=== PATIENT | male | born 1965 | race Caucasian/White ===

== ENCOUNTER 2024-07-13 13:58 | Inpatient (IN) | payer MEDICARE, OTHER ==
[~2024-07-13] VITALS: Ht 180.3 cm; Wt 112.2 kg
[~2024-07-13 13:58] MED LIST: SERT-162 PO
[2024-07-13] MEDS ORDERED: NAPR-1025 PO (15:03)
[2024-07-13] MEDS ORDERED: LOSA-381 PO (15:03)
[2024-07-13] MEDS ORDERED: CLON0.1T2 PO (15:03)
[2024-07-13] MEDS ORDERED: BACL20TA PO (15:03)
[2024-07-13] MEDS ORDERED: HYDR-4527 PO (15:03)
[2024-07-13] MEDS ORDERED: DULO-113 PO (15:03)
[2024-07-13] MEDS ORDERED: GABA-1404 PO (15:03)
[2024-07-13] MEDS: SODIUM CHLORIDE 0.9% 1,000 ML IV ONE ×2 (15:06→21:22)
[2024-07-13] MEDS: LORazepam 2 MG/ML VIAL IVP ONE ×2 (15:06→17:02)
[2024-07-13] MEDS: MAGNESIUM SULFATE 2 GM, MVI, ADULT NO.1 WITH VIT K 10 ML, THIAMINE 100 MG, FOLIC ACID 1... IV ONE (15:06)
[2024-07-13 15:19] LABS: EOSINOPHILS % (AUTO) 0.2 % (1.0-6.0); HEMATOCRIT 44.7 % (41-53); HEMOGLOBIN 14.6 g/dL (13.5-17.5); LYMPHOCYTES # (AUTO) 1.4 K/uL (1.0-4.8); LYMPHOCYTES % (AUTO) 23.2 % (22.0-44.0); MEAN CORPUSCULAR HEMOGLOBIN 29.4 pg (26.0-34.0); MEAN CORPUSCULAR HGB CONC 32.6 G/dL (31.0-37.0); MEAN CORPUSCULAR VOLUME 90 fL (80-100); MONOCYTES # (AUTO) 0.3 K/uL (0.1-1.0); MONOCYTES % (AUTO) 4.9 % (2.0-9.0); NEUTROPHILS # (AUTO) 4.2 K/uL (1.8-7.7); NEUTROPHILS % (AUTO) 70.7 % (40.0-70.0); PLATELET COUNT (AUTO) 329 K/uL (150-450); RED BLOOD CELL COUNT(AUTO) 4.96 MIL/uL (4.50-5.90); WHITE BLOOD COUNT (AUTO) 5.9 K/uL (4.5-11.0)
[2024-07-13 15:30] LABS: ANION GAP 20 mmol/L (8-16); CALCIUM, TOTAL 8.5 mg/dL (8.8-10.5); CARBON DIOXIDE 21 mmol/L (22-29); CHLORIDE 97 mmol/L (98-107); CREATININE 0.98 mg/dL (0.60-1.30); GLOMERULAR FILTR. RATE CALC > 60 mL/min (>60); GLUCOSE,RANDOM 91 mg/dL (70-110); POTASSIUM 3.6 mmol/L (3.5-5.1); SODIUM SERUM 138 mmol/L (136-145); UREA NITROGEN, BLOOD 20 mg/dL (7-18)
[2024-07-13 15:31] LABS: LIPASE 31 U/L (16-77)
[2024-07-13 15:36] LABS: ALBUMIN 4.5 g/dL (3.4-5.0); BILIRUBIN,DIRECT 0.2 mg/dL (0.00-0.20); BILIRUBIN,TOTAL 0.7 mg/dL (0.1-1.0); MAGNESIUM 1.9 mg/dL (1.80-2.40); TOTAL PROTEIN, SERUM 7.8 g/dL (6.4-8.2)
[2024-07-13 15:36] LABS: APPEARANCE,URINE CLEAR (CLEAR); BILIRUBIN,URINE NEGATIVE (NEGATIVE); COLOR,URINE YELLOW (YELLOW); GLUCOSE, URINE (UA) NEGATIVE (NEGATIVE); LEUKOCYTE ESTERASE ,URINE NEGATIVE (NEGATIVE); NITRATE,URINE NEGATIVE (NEGATIVE); OCCULT BLOOD,URINE SMALL (NEGATIVE); PH,URINE 5.5 (5.0-8.0); PH,URINE DRUG SCREEN 5.5 (5.0-8.0); PROTEIN,URINE 100-200,SEE CONFIRM mg/dL (NEGATIVE); SPECIFIC GRAVITIY, URINE 1.025 (1.003-1.030); UROBILINOGEN,URINE <=1.0 mg/dL (<=1.0)
[2024-07-13 15:38] LABS: TROPONIN I-HIGH SENSITIVITY 16 ng/L (<76)
[2024-07-13 15:41] LABS: ALCOHOL, URINE DRUG SCREEN POSITIVE (NEGATIVE); AMPHET/METH SCREEN,URINE NEGATIVE (NEGATIVE); BARBITURATE SCREEN, URINE NEGATIVE (NEGATIVE); BENZODIAZEPINES SCREEN,URINE NEGATIVE (NEGATIVE); CANNABINOID SCREEN,URINE POSITIVE (NEGATIVE); COCAINE SCREEN,URINE NEGATIVE (NEGATIVE); METHADONE SCREEN, URINE NEGATIVE (NEGATIVE); OPIATE SCREEN,URINE NEGATIVE (NEGATIVE); PHENCYCLIDINE SCREEN,URINE NEGATIVE (NEGATIVE)
[2024-07-13 15:56] LABS: SULFOSALICYLIC ACID,URINE 2+ (Negative)
[2024-07-13 15:57] LABS: BACTERIA,URINE Rare /HPF (None Seen); SQUAMOUS EPITHELIAL CELL,UR Rare /LPF (None Seen); WBC,URINE 0-2 /HPF (0-5)
[2024-07-13] MEDS ORDERED: MAGNESIUM HYDROXIDE SUSPENSION 30 ML UDCUP PO PRN (17:00)
[2024-07-13] MEDS ORDERED: CloNIDine HCL 0.1 MG TABLET PO PRN (17:00)
[2024-07-13] MEDS ORDERED: ACETAMINOPHEN 325 MG TABLET PO PRN (17:00)
[2024-07-13] MEDS: AmLODIPine BESYLATE 5 MG TABLET PO SCH (17:02)
[2024-07-13 17:49] VITALS: BP 143/100; PULSE 104; RESP 16; TEMP 98.4; O2SAT 89
[2024-07-13 19:20] VITALS: BP 138/109; RESP 17; TEMP 98.2; O2SAT 93
[2024-07-13] MEDS: FAMOTIDINE 20 MG TABLET PO SCH (19:48)
[2024-07-13] MEDS: LORazepam 2 MG/ML VIAL IVP PRN ×2 (19:49→23:45)
[2024-07-13] MEDS: ONDANSETRON HCL 4 MG/2 ML VIAL IVP PRN (20:00)
[2024-07-13] MEDS: ZOLPIDEM TARTRATE 5 MG TABLET PO PRN (20:22)
[2024-07-13] MEDS: DIGOXIN 250 MCG/ML 2 ML AMP IVP ONE (21:21)
[2024-07-14 00:53] VITALS: BP 145/97; PULSE 143; RESP 19; TEMP 98.4; O2SAT 20; O2SAT 95
[2024-07-14 04:08] VITALS: BP 105/85; PULSE 78; RESP 18; TEMP 98.5; O2SAT 93
[2024-07-14 08:05] VITALS: BP 142/110; PULSE 120; RESP 20; TEMP 98; O2SAT 94
[2024-07-14] MEDS: APIXABAN 5 MG TABLET PO SCH (08:39)
[2024-07-14] MEDS: MULTIVITAMINS WITH MINERALS, THERAPEUTIC TABLET PO SCH (08:39)
[2024-07-14] MEDS: DIGOXIN 250 MCG/ML 2 ML AMP IVP ONE (08:40)
[2024-07-14] MEDS: METOPROLOL TARTRATE 25 MG TABLET PO SCH (09:02)
[2024-07-14 11:34] LABS: TROPONIN I-HIGH SENSITIVITY 83 ng/L (<76)
[2024-07-14 11:39] VITALS: BP 138/89; PULSE 110; RESP 19; TEMP 97.6; O2SAT 98
[2024-07-14] MEDS ORDERED: THIA100T80 PO (11:41)
[2024-07-14] MEDS ORDERED: DIVA-111 PO (11:41)
[2024-07-14] MEDS: DIVALPROEX SODIUM 250 MG DR TABLET PO SCH (12:00)
[2024-07-14] MEDS: DULoxetine HCL 60 MG CAPSULE PO SCH (12:00)
[2024-07-14] MEDS: METOCLOPRAMIDE HCL 5 MG/ML 2 ML VIAL IVP PRN (12:09)
[2024-07-14] MEDS: GABAPENTIN 300 MG CAPSULE PO SCH (15:31)
[2024-07-14 15:55] VITALS: BP 131/89; PULSE 140; RESP 19; TEMP 97.9; O2SAT 96
[2024-07-14] MEDS: AMIODARONE HCL 150 MG in DEXTROSE 5%-WATER 97 ML IV ONE (18:10)
[2024-07-14] MEDS: AMIODARONE HCL 360 MG in DEXTROSE 5%-WATER 242.8 ML IV ONE (18:11)
[2024-07-14 18:14] LABS: TROPONIN I-HIGH SENSITIVITY 36 ng/L (<76)
[2024-07-14 20:47] VITALS: BP 153/79; PULSE 73; RESP 19; TEMP 97.9; O2SAT 94
[2024-07-14] MEDS: AMIODARONE HCL 540 MG in DEXTROSE 5%-WATER 239.2 ML IV ONE (23:45)
[2024-07-15 00:30] VITALS: BP 120/77; PULSE 57; RESP 19; TEMP 97.8; O2SAT 95
[2024-07-15 06:03] VITALS: BP 145/108; PULSE 74; RESP 19; TEMP 98.1; O2SAT 92
[2024-07-15 08:45] VITALS: BP 161/96; PULSE 74; RESP 18; TEMP 97.8; O2SAT 94
[2024-07-15 11:57] VITALS: BP 143/94; PULSE 72; RESP 18; TEMP 97.4; O2SAT 94
[2024-07-15 15:45] VITALS: BP 147/103; PULSE 71; RESP 19; TEMP 97.7; O2SAT 94
[2024-07-15] MEDS ORDERED: AMIODARONE HCL 750 MG in DEXTROSE 5%-WATER 485 ML IV SCH (18:00)
== END 2024-07-15 16:04 | disposition left against medical advice (07) | DRG 309 ==
LOC: EMS 13:59 → EDH 16:01 → 5S 17:35
PROVIDERS: ADMIT Internal Medicine; ATTEND Internal Medicine
DX: I48.91 Unspecified atrial fibrillation (principal); F10.239 Alcohol dependence with withdrawal, unspecified; E66.9 Obesity, unspecified; I10 Essential (primary) hypertension; F43.10 Post-traumatic stress disorder, unspecified; R56.9 Unspecified convulsions; E86.0 Dehydration; F10.229 Alcohol dependence with intoxication, unspecified; F41.9 Anxiety disorder, unspecified; Z82.49 Family history of ischemic heart disease and other diseases of the circulatory system; Z87.891 Personal history of nicotine dependence; Z68.34 Body mass index [BMI] 34.0-34.9, adult; Z53.29 Procedure and treatment not carried out because of patient's decision for other reasons
CPT/HCPCS: 71045; 80048; 80076; 80307; 81001; 81002; 83690; 83735; 84443; 84484; 85025; 93005; 93306; 99285; G0378; G0480; J0282; J1160; J2060; J2405; J2765; J3411; J3475; J3490; J7030; J7060; 36415-L1; 36415-TC

== ENCOUNTER 2024-08-09 14:11 | Emergency (ER) | payer MEDICARE ==
[~2024-08-09] VITALS: Ht 180.3 cm; Wt 109.1 kg
[~2024-08-09 14:11] MED LIST changes: +BACL20TA PO; +CLON0.1T2 PO; +DIVA-111 PO; +DULO-113 PO; +GABA-1404 PO; +HYDR-4527 PO; +LOSA-381 PO; +NAPR-1025 PO; -SERT-162 PO; +THIA100T80 PO
[2024-08-09 14:19] VITALS: TEMP 98.7
[2024-08-09 15:11] LABS: EOSINOPHILS % (AUTO) 0 % (1.0-6.0); HEMATOCRIT 46.7 % (41-53); HEMOGLOBIN 15.5 g/dL (13.5-17.5); LYMPHOCYTES # (AUTO) 1.5 K/uL (1.0-4.8)
[2024-08-09 15:13] LABS: BASOPHILS % (AUTO) 0.7 % (0.0-2.0); LYMPHOCYTES % (AUTO) 13.4 % (22.0-44.0); MEAN CORPUSCULAR HGB CONC 33.3 G/dL (31.0-37.0); MEAN CORPUSCULAR VOLUME 90 fL (80-100); MONOCYTES # (AUTO) 0.8 K/uL (0.1-1.0); MONOCYTES % (AUTO) 7.3 % (2.0-9.0); NEUTROPHILS # (AUTO) 8.8 K/uL (1.8-7.7); NEUTROPHILS % (AUTO) 78.6 % (40.0-70.0); PLATELET COUNT (AUTO) 338 K/uL (150-450); RED BLOOD CELL COUNT(AUTO) 5.18 MIL/uL (4.50-5.90); RED CELL DISTRIBUTION WIDTH 14.9 % (11.5-14.5); WHITE BLOOD COUNT (AUTO) 11.2 K/uL (4.5-11.0)
[2024-08-09 15:20] LABS: ANION GAP 13 mmol/L (8-16); CALCIUM, TOTAL 9.3 mg/dL (8.8-10.5); CARBON DIOXIDE 25 mmol/L (22-29); CHLORIDE 100 mmol/L (98-107); CREATININE 1.06 mg/dL (0.60-1.30); GLOMERULAR FILTR. RATE CALC > 60 mL/min (>60); GLUCOSE,RANDOM 127 mg/dL (70-110); POTASSIUM 3.9 mmol/L (3.5-5.1); SODIUM SERUM 138 mmol/L (136-145); UREA NITROGEN, BLOOD 23 mg/dL (7-18)
[2024-08-09] MEDS: ONDANSETRON HCL 4 MG/2 ML VIAL IVP ONE (15:21)
[2024-08-09] MEDS: SODIUM CHLORIDE 0.9% 1,000 ML IV ONE (15:21)
[2024-08-09 15:27] LABS: ALANINE AMINOTRANSFERASE 37 U/L (12-78); ALBUMIN 4.5 g/dL (3.4-5.0); ALKALINE PHOSPHATASE 81 U/L (46-116); ASPARTATE AMINOTRANSFERASE 24 U/L (15-37); BILIRUBIN,TOTAL 1.1 mg/dL (0.1-1.0); LIPASE 19 U/L (16-77); TOTAL PROTEIN, SERUM 8.1 g/dL (6.4-8.2)
[2024-08-09 15:40] LABS: ALCOHOL, BLOOD (SERUM) < 3 mg/dL (0-10)
[2024-08-09] MEDS: DIAZEPAM 5 MG/ML 2 ML SYRINGE IVP ONE (16:17)
[2024-08-09] MEDS: MAGNESIUM SULFATE 2 GM/WATER 50 ML IV ONE (17:09)
[2024-08-09] MEDS ORDERED: GABA-1404 PO (17:15)
[2024-08-09] MEDS ORDERED: ONDA-104 PO (17:15)
[2024-08-09 17:54] VITALS: BP 151/90; PULSE 91; RESP 19; O2SAT 96
[2024-08-09] MEDS: ChlordiazePOXIDE HCL 25 MG CAPSULE PO ONE (19:00)
== END 2024-08-09 19:43 | disposition home or self-care (01) ==
LOC: EMS 14:11
DX: F10.129 Alcohol abuse with intoxication, unspecified (principal); E83.42 Hypomagnesemia; F32.A Depression, unspecified; I10 Essential (primary) hypertension; Z79.899 Other long term (current) drug therapy; Y90.6 Blood alcohol level of 120-199 mg/100 ml
CPT/HCPCS: 99284; 96365; 96375; 96361; 80048; 80076; 83690; 83735; 85025; 36415; 93005; G0480; J1885; J2405; J7030; J3475

== ENCOUNTER 2024-09-08 12:49 | Emergency (ER) | payer MEDICARE ==
[~2024-09-08] VITALS: Ht 180.3 cm; Wt 113.6 kg
[~2024-09-08 12:49] MED LIST changes: +ONDA-104 PO
[2024-09-08 13:59] LABS: BASOPHILS % (AUTO) 1.4 % (0.0-2.0); EOSINOPHILS % (AUTO) 0.2 % (1.0-6.0); HEMATOCRIT 48.8 % (41-53); HEMOGLOBIN 16.4 g/dL (13.5-17.5); LYMPHOCYTES # (AUTO) 1.9 K/uL (1.0-4.8); LYMPHOCYTES % (AUTO) 33.4 % (22.0-44.0); MEAN CORPUSCULAR HEMOGLOBIN 30.7 pg (26.0-34.0); MEAN CORPUSCULAR HGB CONC 33.6 G/dL (31.0-37.0); MEAN CORPUSCULAR VOLUME 91 fL (80-100); MONOCYTES # (AUTO) 0.3 K/uL (0.1-1.0); MONOCYTES % (AUTO) 6.1 % (2.0-9.0); NEUTROPHILS # (AUTO) 3.3 K/uL (1.8-7.7); NEUTROPHILS % (AUTO) 58.9 % (40.0-70.0); PLATELET COUNT (AUTO) 319 K/uL (150-450); RED BLOOD CELL COUNT(AUTO) 5.34 MIL/uL (4.50-5.90); RED CELL DISTRIBUTION WIDTH 15.8 % (11.5-14.5); WHITE BLOOD COUNT (AUTO) 5.6 K/uL (4.5-11.0)
[2024-09-08 14:06] LABS: ANION GAP 19 mmol/L (8-16); CARBON DIOXIDE 24 mmol/L (22-29); CHLORIDE 102 mmol/L (98-107); CREATININE 0.73 mg/dL (0.60-1.30); GLUCOSE,RANDOM 95 mg/dL (70-110); SODIUM SERUM 145 mmol/L (136-145); UREA NITROGEN, BLOOD 15 mg/dL (7-18)
[2024-09-08 14:07] LABS: CALCIUM, TOTAL 8.6 mg/dL (8.8-10.5); GLOMERULAR FILTR. RATE CALC > 60 mL/min (>60)
[2024-09-08 14:12] LABS: ALANINE AMINOTRANSFERASE 42 U/L (12-78); ALBUMIN 4.6 g/dL (3.4-5.0); ALKALINE PHOSPHATASE 74 U/L (46-116); ASPARTATE AMINOTRANSFERASE 28 U/L (15-37); BILIRUBIN,TOTAL 0.4 mg/dL (0.1-1.0); TOTAL PROTEIN, SERUM 8.2 g/dL (6.4-8.2)
[2024-09-08 14:33] LABS: TROPONIN I-HIGH SENSITIVITY 9 ng/L (<76)
[2024-09-08] MEDS: LORazepam 1 MG TABLET PO ONE (15:06)
[2024-09-08 15:15] LABS: ALCOHOL, BLOOD (SERUM) 275 mg/dL (0-10)
[2024-09-08 15:31] VITALS: BP 134/84; PULSE 80; RESP 16; TEMP 98; O2SAT 100
== END 2024-09-08 15:44 | disposition home or self-care (01) ==
LOC: EMS 12:54
DX: F10.129 Alcohol abuse with intoxication, unspecified (principal); F41.9 Anxiety disorder, unspecified; I10 Essential (primary) hypertension; F32.A Depression, unspecified; Z79.899 Other long term (current) drug therapy; Y90.6 Blood alcohol level of 120-199 mg/100 ml
CPT/HCPCS: 99285; 71045; 80048; 80076; 84484; 85025; 36415; 93005; G0480